=== PATIENT | male | born 1950 | race Caucasian/White ===

== ENCOUNTER 2016-04-08 03:28 | Emergency (ER) | payer BC ==
[2016-04-08] MEDS: ATROPINE SULFATE 0.1 MG/ML DISP.SYRIN IVP ONE (03:30)
--- NOTE | 2016-04-08 04:03 | ED Physician Documentation ---
Cardiopulmonary Resuscitation - HISTORIAN Historian: spouse, paramedics - [facility] Chief Complaint: CPR Additional Information: Patient brought to ER by EMS in full arrest with autopulse, intubated per EMS with #8 ET tube. Per EMS, firefighters found patient wifacing bottom of steps, feet at top step, prone. Per , patient had fallen asleep in recliner downstairs. She went downstairs to wake him, talked with him, and he went upstairs to go to bed. She heard a thump and he was on the stairs. There was blood about his mouth. Down for 45 minutes by the time he reached the ER. Down 15 minutes before fire department arrived and began CPR. - INITIAL FINDING Mentation: unresponsive - TREATMENT INITIATED QUALITY ENGINEERING MANAGER Oxygen: oxygen CRP/Thumper: Yes - MEDICATIONS GIVEN QUALITY ENGINEERING MANAGER How Many Doses of Epinephrine?: 4 (per EMS) How Many Doses of Atropine?: 1 (in ER, with PEA) Amiodorone Given?: No Sodium Bicarb Given?: No Lidocaine Given?: No - ROS CONST: none - PAST HX Past History: other (GERD, HLD) Home Medications: Ambulatory Orders Medication Instructions Recorded Atorvastatin Calcium 40 mg PO DAILY 04/08/16 Omeprazole [Omeprazole] 20 mg PO DAILY 04/08/16 - SOCIAL HX Smoking History: non-smoker - FAMILY HX Family History: No (unknown) - VITAL SIGNS Vital Signs: Vital Signs Temp Pulse Resp BP Pulse Ox 16 04/08/16 03:30 - REVIEWED ASSESSMENTS Nursing Assessment Reviewed: Yes Vitals Reviewed: Yes Progress - Progress Progress: 1 mg atropine given for PEA with <20 complexes per minute. More frequent complexes, 60 per minute, but no pulses. Critical Care Note - Critical Care Note Total Time (mins): 6 Chest Pain Physical Exam - EXAM General Appearance: severe distress EENT: other (pupils fixed and dilated, 6-7 mm) Neck: nml inspection. No: subcutaneous emphysema Respiratory: other (breath sounds doris with bag ventilation) CVS: other (no pulses w/o auto pulse, no peripheral pulses with auto pulse) Rectal: deferred Skin: other (face with erythema, petechiae/bruising) Extremities: no evidence of injury, no edema Neuro: other (unresponsive. No spontaneous movement) Discharge Clincal Impression: Cardiac arrest Referrals: Primary Doctor,No [Primary Care Provider] - 2 Days Home Medications: Ambulatory Orders Atorvastatin Calcium 40 mg PO DAILY 04/08/16 Omeprazole [Omeprazole] 20 mg PO DAILY 04/08/16 Condition: Critical Disposition: 20 Decision to Admit: NO Decision Time: 03:33
[2016-04-08] MEDS ORDERED: EPINEPHrine 0.1 MG/ML DISP.SYRIN IVP ONE (05:25)
[2016-04-08] MEDS ORDERED: ATROPINE SULFATE 0.1 MG/ML DISP.SYRIN ONE (05:25)
== END 2016-04-08 03:33 | disposition expired ==
LOC: ED 03:28
DX: I46.9 Cardiac arrest, cause unspecified (principal)
CPT/HCPCS: J0171; J0461; 96374; 99285